=== PATIENT | female | born 1955 | race Two or more races ===

== ENCOUNTER 2024-01-15 05:50 | Day surgery (SDC) | payer OTHER ==
[~2024-01-15] VITALS: Ht 160 cm; Wt 69.9 kg
[~2024-01-15 05:50] MED LIST: B12 ACTIVE1000 MCG PO; BACLOFEN10 MG PO; CHILDREN'S ASPI81 MG PO; COZAAR25 MG PO; CRESTOR40 MG PO; HUMULIN 70100 UNIT/2; MAGNESIUM400 MG PO; ORTHO DF 3,7751 EACH PO; PEPCID40 MG PO; TOPROL XL25 M1 PO
[2024-01-15] MEDS ORDERED: CEFAZOLIN SODIUM 1,000 MG VIAL ONE (08:39)
[2024-01-15] MEDS ORDERED: LIDOCAINE HCL 1%/EPINEPHRINE 20ML VIAL IJ ONE (08:42)
[2024-01-15] MEDS ORDERED: POVIDONE-IODINE 118 ML BOTT TOP ONE (09:03)
== END 2024-01-15 12:40 | disposition home or self-care (01) ==
LOC: CIR.AMB 05:50
PROVIDERS: ATTEND Colon & Rectal Surgery
DX: R15.9 Full incontinence of feces (principal); R32 Unspecified urinary incontinence; M19.90 Unspecified osteoarthritis, unspecified site; E11.9 Type 2 diabetes mellitus without complications; E78.00 Pure hypercholesterolemia, unspecified; I25.2 Old myocardial infarction; I11.9 Hypertensive heart disease without heart failure
CPT/HCPCS: 64581; 95971; C1778

== ENCOUNTER 2024-01-29 06:32 | Day surgery (SDC) | payer OTHER ==
[2024-01-29] MEDS ORDERED: BUPIVACAINE HCL 30 ML VIAL IJ ONE (08:30)
[2024-01-29] MEDS ORDERED: LIDOCAINE HCL 1%/EPINEPHRINE 20ML VIAL IJ ONE (08:30)
[2024-01-29] MEDS ORDERED: CEFTRIAXONE SODIUM 2,000 MG VIAL IV ONE (08:30)
[2024-01-29] MEDS ORDERED: METRONIDAZOLE/SODIUM CHLORIDE 500 MG/100 ML PIGGYBACK IV ONE (08:30)
[2024-01-29] MEDS ORDERED: DIPHENHYDRAMINE HCL 50 MG/ML VIAL 1ML IV ONE (10:00)
== END 2024-01-29 11:05 | disposition home or self-care (01) ==
LOC: CIR.AMB 06:32
PROVIDERS: ATTEND Colon & Rectal Surgery
DX: R15.9 Full incontinence of feces (principal); I10 Essential (primary) hypertension; E11.9 Type 2 diabetes mellitus without complications; K76.0 Fatty (change of) liver, not elsewhere classified; H52.209 Unspecified astigmatism, unspecified eye; H52.10 Myopia, unspecified eye
CPT/HCPCS: 64590; 95971; C1767